=== PATIENT | male | born 1990 | race Caucasian/White ===

== ENCOUNTER 2017-01-04 21:44 | Emergency (ER) | payer MEDICAID ==
--- NOTE | 2017-01-04 22:21 | ER PHYSICIAN DOCUMENTATION ---
Physician Documentation [facility] Name:Briana Escalera Age:26 yrs Sex:Male :1990 Arrival Date:01/04/2017 Time:21:44 Bed4 Private MD:Arleth, Provider ED ChayoDomingo Disposition: 01/04 22:23 Chart complete. tl1 Disposition: 01/04/17 22:06 Discharged to Home/Self Care. Impression: Constipation. - Condition is Good. - Discharge Instructions: CONSTIPATION (Adult). - Medical Reconciliation form form. - Follow up: Arleth, Provider; When: 1 week; Reason: Recheck today's complaints, Continuance of care. - Problem is new. - Symptoms are unchanged. - Notes: Take the miralax as prescribed. Make sure to follow up at [facility] within a week or two. Eat a high fiber diet. HPI: 21:52 This 26 yrs old Male presents to ER via Walk In with complaints of Abdominal tl1 Pain and bloating. 22:14 This 26 yrs old Male presents to ER via Walk In with complaints of Abdominal tl1 Pain. 22:14 The patient presents with constipation. Onset: The symptoms/episode began/occurred tl1 gradually, 2 week(s) ago. The symptoms do not radiate. The patient has not experienced similar symptoms in the past. The patient has been recently seen by a physician: the patient's primary care provider, in [facility], earlier today, with similar presenting complaints, Prescribed miralax, which he has not taken.. Just CLEAT LAYER he had some crampy pain and increased bloating and came to the ED for evaluation. He did pass a narrow caliber stool (finger diameter) earlier today. Has not had difficulty passing bowel movements. They have just been small and infrequent. No melena, hematochezia or hematemesis. Denies f/c/s/n/v/d. No weight loss. No family history of colon cancer. No new meds. Has been taking Celexa for anxiety for the last year or so.. 22:14 He works at a [employer] place and eats a lot of pizza and cheese.. tl1 Historical: - Allergies: No known drug Allergies; - Home Meds: 1. citalopram 40 mg oral tab 1 tab once daily 2. Protonix 40 mg oral grps 1 packet once daily - PMHx: ANXIETY; - PSHx: None; - Tetanus: < 10 years. - Ebola Screening: : Patient negative for fever greater than or equal to 101.5 degrees Fahrenheit, and additional compatible Ebola Virus Disease symptoms. Patient denies exposure to infectious person. Patient denies travel to an Ebola-affected area in the 21 days before illness onset. No symptoms or risks identified at this time. . - Immunization history: Flu Vaccine < 1 year. - Social history: Smoking status: Patient states was never smoker of tobacco. Patient/guardian denies using alcohol, street drugs. ROS: 22:19 Constitutional: Positive for malaise, Negative for chills, fatigue, fever, poor PO tl1 intake, weight loss. 22:19 Abdomen/GI: Positive for abdominal pain, constipation, abdominal cramps, abdominal distension, Negative for nausea, vomiting, diarrhea, anorexia, hematemesis, black/tarry stool, rectal pain, rectal bleeding, bowel incontinence, flatulence. 22:19 : Negative for urinary symptoms. Exam: 22:21 Constitutional: This is a well developed, well nourished patient who is awake, alert, tl1 and in no acute distress. Head/Face: Normocephalic, atraumatic. Cardiovascular: Regular rate and rhythm with a normal S1 and S2. No gallops, murmurs, or rubs. Normal PMI, no JVD. No pulse deficits. 22:21 Respiratory: Lungs have equal breath sounds bilaterally, clear to auscultation and tl1 percussion. No rales, rhonchi or wheezes noted. No increased work of breathing, no retractions or nasal flaring. 22:21 Abdomen/GI: Inspection: distension, that is mild, in the left upper quadrant, left lower quadrant and abdomen diffusely, Bowel sounds: active, Palpation: soft, mild abdominal tenderness, in all quadrants, rebound tenderness, is not appreciated, voluntary guarding, is not appreciated, no appreciated organomegaly, Rectal exam: is unremarkable, Prostate: normal, rectal tone normal, Stool: brown, guaiac negative, hemorrhoid(s), are not appreciated, mass, is not appreciated, tenderness, is not appreciated, fecal impaction, is not appreciated. 22:21 Skin: Exam negative for acute changes. 22:21 Neuro: Exam negative for acute changes. Vital Signs: 21:51 BP 133 / 98; Pulse 165; Resp 15; Temp 98.4; Pulse Ox 96% on R/A; Weight 74.84 kg; mk2 Height 5 ft. 11 in. (180.34 cm); Pain 6/10; 21:51 Body Mass Index 23.01 (74.84 kg, 180.34 cm) mk2 MDM: 21:51 Patient medically screened. tl1 22:13 Special discussion: The importance of a high fiber diet. Gave him up to date tl1 instructions on a high fiber diet.. 22:23 Data reviewed: vital signs, nurses notes, and as a result, I will discharge patient. tl1 Counseling: I had a detailed discussion with the patient and/or guardian regarding: the historical points, exam findings, and any diagnostic results supporting the discharge/admit diagnosis, the need for outpatient follow up, to return to the emergency department if symptoms worsen or persist or if there are any questions or concerns that arise at home. Response to treatment: There is no appreciated change of the patient's symptoms at this time, and as a result, I will discharge patient. Dispensed Medications: No medications were administered Signatures: Swati Allen RN RN mk2 Domingo Domingo MD MD tl1 Karyn Pedroza
--- NOTE | 2017-01-04 22:21 | ER NURSING DOCUMENTATION ---
Nurse's Notes [facility] Name:Briana Escalera Age:26 yrs Sex:Male :1990 Arrival Date:01/04/2017 Time:21:44 Bed4 Private MD:Arleth, Provider Diagnosis:Constipation Presentation: 01/04 21:47 Presenting complaint: Patient states: I started feeling bloated ten minutes ago. I was 2 going to take miralax but it just was hurting. Pt states he thinks he is constipated. Transition of care: Home. Care prior to arrival: None. Pt was seen at [facility] and given miralax. 21:47 Method Of Arrival: Walk In [facility] 21:47 Acuity: BETH 4 2 Triage Assessment: 21:50 General: Appears in no apparent distress, Behavior is cooperative, pleasant. Pain: 2 Complains of pain in umbilical area Pain currently is 6 out of 10 on a pain scale. Cardiovascular: No deficits noted. Respiratory: No deficits noted. GI: Denies cramping, diarrhea, vomiting, Parent/caregiver reports the patient having bloating, constipation. Historical: - Allergies: No known drug Allergies; - Home Meds: 1. citalopram 40 mg oral tab 1 tab once daily 2. Protonix 40 mg oral grps 1 packet once daily - PMHx: ANXIETY; - PSHx: None; - Tetanus: < 10 years. - Ebola Screening: : Patient negative for fever greater than or equal to 101.5 degrees Fahrenheit, and additional compatible Ebola Virus Disease symptoms. Patient denies exposure to infectious person. Patient denies travel to an Ebola-affected area in the 21 days before illness onset. No symptoms or risks identified at this time. . - Immunization history: Flu Vaccine < 1 year. - Social history: Smoking status: Patient states was never smoker of tobacco. Patient/guardian denies using alcohol, street drugs. Screenin:52 Infectious Disease Risk None. Abuse screen: Denies threats or abuse. Nutritional 2 screening: No deficits noted. Assessment: 21:52 See Triage Assessment done by same RN. [facility] Vital Signs: 21:51 BP 133 / 98; Pulse 165; Resp 15; Temp 98.4; Pulse Ox 96% on R/A; Weight 74.84 kg; mk2 Height 5 ft. 11 in. (180.34 cm); Pain 6/10; 21:51 Body Mass Index 23.01 (74.84 kg, 180.34 cm) 2 ED Course: 21:45 Patient arrived in ED. em2 21:45 Arleth, Provider is Private Physician. em2 21:47 Swati Allen, RN is Primary Nurse. mk2 21:48 Triage completed. mk2 21:51 Domingo Domingo MD is Attending Physician. tl1 21:52 Arm band placed on Bed in low position Call Light in Reach Gowned HOB Elevated. mk2 22:06 Arleth, Provider is Referral Physician. tl1 Administered Medications: No medications were administered Outcome: 22:06 Discharge ordered by . tl1 22:20 Discharged to home ambulatory. lb 22:20 Condition: good 22:20 Discharge Assessment: Patient awake, alert and oriented x 3. No cognitive and/or functional deficits noted. Patient verbalized understanding of disposition instructions. 22:20 Instructed on discharge instructions, follow up and referral plans. 22:20 Patient left the ED. lb 01/05 10:43 Discharge F/U Call: Spoke with: patient. Have you made a f/u appointment? yes Overall lp Care on a scale of 1-10 with 10 being the best care, you rate our care as: the rating of 10. Signatures: Riri Cohn RN RN Swati Allen, PRITI RN 2 Kristel-reg, Guerita-reg 2 Domingo Domingo MD MD tl1 Karyn Pedroza lb
== END 2017-01-04 22:20 | disposition home or self-care (01) ==
LOC: ER 21:44
DX: K59.00 Constipation, unspecified (principal); R14.0 Abdominal distension (gaseous); R53.81 Other malaise; Z79.899 Other long term (current) drug therapy
CPT/HCPCS: 99281